=== PATIENT | female | born 1955 ===

== ENCOUNTER 2024-02-16 05:35 | Day surgery (SDC) | payer OTHER ==
[~2024-02-16 05:35] MED LIST: ALENDRONATE SOD70 MG; CINNAMON; COENZYME Q1010 MG; EVISTA60 MG; INDAPAMIDE1.25 MG; VITA D; VITAMIN C; ZETIA10 MG; [UNRECOGNIZED DRUG - OTHER]
[2024-02-16] MEDS ORDERED: IBU600 MG PO (08:37)
[2024-02-16] MEDS ORDERED: CHLORHEXIDINE GLUCONATE 120 ML BOTTLE TOP ONE (09:00)
== END 2024-02-16 12:25 | disposition home or self-care (01) ==
LOC: CIR.AMB 05:35
PROVIDERS: ATTEND Obstetrics & Gynecology Gynecology
DX: N84.0 Polyp of corpus uteri (principal); N95.0 Postmenopausal bleeding; Z88.8 Allergy status to other drugs, medicaments and biological substances; I10 Essential (primary) hypertension; M19.90 Unspecified osteoarthritis, unspecified site; M81.0 Age-related osteoporosis without current pathological fracture